=== PATIENT | male | born 1970 | race Caucasian/White ===

== ENCOUNTER 2023-11-27 11:17 | Emergency (ER) | payer OTHER ==
[2023-11-27 11:24] VITALS: BP 140/95; PULSE 94; RESP 15; TEMP 97.5; BMI 34.2
[2023-11-27] MEDS ORDERED: KETOROLAC TROMETHAMINE 15 MG/ML VIAL ONE (12:39)
[2023-11-27] MEDS: KETOROLAC TROMETHAMINE 15 MG/ML VIAL IM ONE (12:43)
== END 2023-11-27 13:49 | disposition home or self-care (01) ==
LOC: FER 11:17
PROC: 3E0233Z Introduction of Anti-inflammatory into Muscle, Percutaneous Approach (ICD-10-PCS; principal; 2023-11-27)
DX: M25.531 Pain in right wrist (principal); M19.031 Primary osteoarthritis, right wrist; M25.431 Effusion, right wrist
CPT/HCPCS: 73110-TC-RT-FY; 73130-TC-RT-FY; 99284-25